=== PATIENT | male | born 1995 | race Caucasian/White ===

== ENCOUNTER 2020-10-24 09:41 | Outpatient (CLI) | payer OTHER | END 2020-10-24 23:59 | disposition home or self-care (01) | LOC: LAB.N 09:41 | PROVIDERS: ATTEND Family Medicine | DX: R05 Cough (principal); Z20.822 Contact with and (suspected) exposure to COVID-19 ==

== ENCOUNTER 2021-12-11 10:52 | Outpatient (CLI) | payer OTHER ==
--- NOTE | 2021-12-11 11:39 | SLEEP CARE CONSULTATION ---
Information from patient questionnaire entered by Perico Norris. I have reviewed and concur with the information entered by Perico Norris. This document represents the service I personally performed and the decisions made by me, Hazel Albarran ARNP. History of Present Illness Service Date and Time: 12/11/2021 1052 Reason for Visit: New patient Chief Complaint: reports: Insomnia, Unrefreshed sleep, Snoring, Excessive daytime sleepiness, Observed pauses in breathing, Fatigue, Frequent awakenings at night Date of Onset: 2016 Usual bedtime: 10pm Time it takes to fall asleep: 1-2 hours Snores at night: Yes Observed to quit breathing while asleep: Yes Sleeps alone due to snoring: Yes (sometimes) Number of times waking at night: constantly ; 20-40 Reasons for waking at night: reports: Other (unknown reason ). denies: Choking, Snoring, Gasping for air Toss, Turn, or Twitch while sleeping: Yes Recalls having dreams: No Usually gets out of bed at: 6am Feels refreshed in the morning: No Morning headache: Yes (resolves in 2 hours; 1-2 times a week) Sleepy or fatigued during the day: Yes Ever fallen asleep while driving: No Takes day naps: No Dreams during day naps: No Prior sleep studies: No Additional HPI information: I had the pleasure of seeing CONCHITA HARP today regarding the possibility of him having a sleep disorder. His current complaints are excessive daytime sleepiness, fatigue, frequent night awakenings, insomnia, observed pauses in breathing, snoring and unrefreshed sleep. He states he snores a lot and is constantly waking up at night. He has been told he stops breathing at night. He wakes up with headaches and is just tired throughout the day. His bed partner has noted gasping in his sleep but he has not woken up with gasping. He just rolls over and goes back to sleep after waking up several times a night. He takes Melatonin to help him fall asleep and states this does help. He can take 1-2 hours to fall asleep and feels like he is constantly waking up and turning over in his sleep throughout the night. 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 Patient is and lives in . Have you smoked in the past 12 months: Yes (vape, has nicotine) Years of smokin (vaping) Alcohol use: Yes Alcohol amount and frequency: 2 drinks per month Caffeine use: Yes Caffeine amount and frequency: 2 drinks per month Family History Family history of sleep disordered breathing: No (was adopted) Allergies and Home Medications Drug allergies reviewed: Yes (topical antihistamine, not sure of name) Home medication list reviewed: Yes Allergy and home medication list: Medications: Melatonin 20 mg daily, helps him fall asleep Review of Systems Weight gain over past 5 years: 30 Cardiovascular: denies: high blood pressure Gastrointestinal: reports: heartburn Neurological: denies: headaches, head trauma Psychiatric: denies: anxiety, depression Ear/Nose/Throat: denies: tonsillectomy, wisdom teeth removed Musculoskeletal: reports: joint pain (knees). denies: mobility problems Immunologic: reports: allergies to food or environment (dust, pollen) Physical Exam Vital signs obtained and entered by: SEGUN RUGGIERO Blood Pressure: 120/70 (left arm ) Cuff size: regular Heart Rate: 88 O2 Saturation: 96 Height: 6 ft Weight: 216 lb Body Mass Index: 29.2 BMI Classification: Overweight Neck circumference: 18 (inches) Mouth and throat: narrow oropharynx Soft palate: normal Hard palate: arched Uvula: long, edematous Uvula visualization: 25% Mallampati Class III Tongue: normal in size Tonsils: 2+ Neck: normal w/o lymphadenopathy or thyromegaly Heart: regular rate and rhythm Lungs: clear bilaterally Impression and Plan 1. Suspected Obstructive Sleep Apnea-Hypopnea Syndrome, as suggested by a history of loud and irregular snoring, observed cessation of breath while asleep, gasping or choking in sleep, morning headache, frequent awakening during the night, unrefreshed sleep, cognitive impairment, and excessive daytime sleepiness. Narrow oropharynx and obesity are common predisposing factors for obstructive sleep apnea-hypopnea syndrome. I recommend proceeding to polysomno graphy to confirm the diagnosis and to assess severity. If the patient has significant sleep disordered breathing, a manual CPAP titration study will also be performed to find the optimal treatment pressure. I informed the patient of what the sleep studies involve and after some discussion, obtained agreement to proceed. The pathophysiology of obstructive sleep apnea-hypopnea syndrome was discussed with the patient and health risks of cardiovascular and cerebrovascular disease if not treated. 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 Patient agreed to plan. * Schedule polysomnography * Avoid long distance driving or driving when feeling sleepy. * Avoid alcohol, sedative and muscle relaxant around bedtime. * Attempt to lose weight. * Review instructions provided by trained office staff on how to prepare for the sleep study. * Return for follow-up after sleep study completed. Counseling Topics: Weight loss health impact Visit Type: In Office Time Spent with Patient (minutes): 34 Provider Statement: I spent 100% of the Face to Face Visit with the patient with greater than 50% spent counseling the patient and coordination of care.
[2021-12-11 11:40] VITALS: BP 120/70
== END 2021-12-11 10:53 | disposition home or self-care (01) ==
LOC: SC 10:52
PROVIDERS: ATTEND Nurse Practitioner Family
DX: G47.10 Hypersomnia, unspecified (principal); F17.290 Nicotine dependence, other tobacco product, uncomplicated; R06.83 Snoring; R06.81 Apnea, not elsewhere classified; G47.8 Other sleep disorders
CPT/HCPCS: 99203; 99212

== ENCOUNTER 2021-12-24 19:50 | Outpatient (CLI) | payer OTHER | END 2021-12-24 19:51 | disposition home or self-care (01) | LOC: SC 19:50 | PROVIDERS: ATTEND Nurse Practitioner Family | DX: G47.33 Obstructive sleep apnea (adult) (pediatric) (principal) | CPT/HCPCS: 95810 ==

== ENCOUNTER 2022-01-08 16:20 | Outpatient (CLI) | payer OTHER ==
--- NOTE | 2022-01-08 15:34 | SLEEP CARE CONSULTATION ---
Information from patient questionnaire entered by Cristela Quintanilla. I have reviewed and concur with the information entered by Cristela Quintanilla. This document represents the service I personally performed and the decisions made by me, Hazel Albarran ARNP. History of Present Illness Service Date and Time: 01/08/2022 1440 Initial [place] Sleepiness Scale score: 12 Current [place] Sleepiness Scale score: 12 Additional HPI information: CONCHITA HARP returns via video telehealth visit for follow up and results of the recently performed polysomnography. I explained the pathophysiology behind obstructive sleep apnea. We then spent quite a bit of time discussing different treatment options. For mild obstructive sleep apnea, surgery and oral appliance are alternatives to nasal CPAP therapy but in moderate or severe cases, nasal CPAP is the most effective and reliable treatment. Because apnea is primarily in supine position, then positional management therapy could be effective. Methods discussed such as positioning with pillows to prevent supine sleep. I reviewed the impact of weight changes on sleep apnea and strongly recommended losing weight. After some discussion, the patient opted to go with the nasal CPAP therapy. Nasal autoCPAP set at 4-15 cmH20 will be ordered with rationale explained. A manual titration study will be ordered if unable to find optimal pressure with office adjustments. I explained how CPAP machine works and what to expect when using the machine. Using CPAP every night in order to get used to it was emphasized. Patient advised to put CPAP mask on before getting into bed so as not to fall asleep without CPAP. To assist acclimation to CPAP use, it could also be used for a short time during day while reading or watching TV. The patient was instructed to call the CPAP supplier to discuss any mechanical problem that may occur. If the mask given is uncomfortable or is difficult to keep on through the night even with adjustment, contact the CPAP supplier as many will replace with another mask style if notified before 30 days. If snoring or perceives is not getting enough air or too much air from the machine, notify this office. Patient does not drink alcohol. Patient was cautioned about risks of drowsy driving until sleepiness symptoms resolve. Patient denies drowsy driving. Sleep Study - Results Type of Sleep Study: Polysomnography (COMPLETED 12/24/2021) Prior sleep studies: No Polysomnography/Home Sleep Study results: IMPRESSION: The quality of the study is good. The patient had normal sleep efficiency. The sleep architecture was normal. Respiratory monitoring showed mild obstructive sleep apnea-hypopnea (AHI = 13.6) associated with frequent oxyhemoglobin desaturation and moderate hypoxia (siddharth oxygen saturation of 79%). The respiratory events occurred mainly during REM sleep (supine AHI = 15.7; non-supine = 11.95). Snore was light to loud in intensity. There was no significant periodic leg movement of sleep. Cardiac rhythm was normal sinus rhythm without significant arrhythmia. No abnormal behavior (parasomnia) observed during the night. Allergies and Home Medications Drug allergies reviewed: Yes (NKDA) Home medication list reviewed: Yes (no changes) Review of Systems Review of systems same as previous: Yes (no changes) Physical Exam Vital signs obtained and entered by: VIA phone Height: 6 ft Weight: 217 lb (pt reported) Body Mass Index: 29.4 BMI Classification: Overweight Impression and Plan 1. Obstructive Sleep Apnea-Hypopnea Syndrome, mild, with lowest oxygen saturation of 79%. Obviously this is the cause of the patients symptoms of unrefreshed sleep, and excessive daytime sleepiness. As mentioned above, the patient will be started on nasal autoCPAP therapy with pressure set at 4-15 cmH2 O. Compliance guidelines also reviewed. A copy of compliance guidelines will be given for reference at check out. Because the apnea is more severe supine, I instructed to avoid sleeping supine using pillow positioning until able to start CPAP use. 2. Hypoxemia, moderate, with a siddharth oxygen saturation of 79% and 6.9 minutes spent under 90%. His baseline oxygen saturation was normal with an average oxygen saturation of 93%. * Nasal auto CPAP therapy, pressure at 4-15 cm H2O. * Attempt to lose weight. * Avoid alcohol consumption near bedtime. * Avoid supine sleep until using CPAP. * The patient is again cautioned about driving until sleepiness completely resolves. * Return one month after CPAP obtained. I will assess response to therapy and compliance at that time. Counseling Topics: Weight loss health impact Visit Type: Telehealth Video Video Type: [place] Patient Location: deployed Location of Provider: Office Patient agrees and consents to this telehealth visit type: Yes Patient agrees to have their insurance billed: Yes Time Spent with Patient (minutes): 20 Provider Statement: I spent 100% of the Telehealth Video Call with the patient with greater than 50% spent counseling the patient and coordination of care.
== END 2022-01-08 16:21 | disposition home or self-care (01) ==
LOC: SC 16:20
PROVIDERS: ATTEND Nurse Practitioner Family
DX: G47.33 Obstructive sleep apnea (adult) (pediatric) (principal); R09.02 Hypoxemia; E66.3 Overweight; Z68.29 Body mass index [BMI] 29.0-29.9, adult